=== PATIENT | female | born 1980 ===

== ENCOUNTER 2023-09-27 10:48 | Emergency (ER) | payer OTHER ==
[~2023-09-27] VITALS: Ht 162.6 cm; Wt 105.0 kg
[2023-09-27 11:00] VITALS: BP 138/72; PULSE 84; RESP 16; TEMP 98.3
[2023-09-27 11:35] LABS: COVID AG,FIA SOURCE NASAL SWAB
[2023-09-27 11:55] LABS: SARS-COV2 (COVID) ANTIGEN,FIA Negative (Negative)
[2023-09-27 11:56] LABS: INFLUENZA TYPE A NEGATIVE FOR TYPE A (NEGATIVE); INFLUENZA TYPE B NEGATIVE FOR TYPE B (NEGATIVE)
== END 2023-09-27 14:49 | disposition left against medical advice (07) ==
LOC: EMS 10:54
DX: H92.01 Otalgia, right ear (principal); Z53.21 Procedure and treatment not carried out due to patient leaving prior to being seen by health care provider
CPT/HCPCS: 87804; 99281; Z7502

== ENCOUNTER 2024-12-13 05:14 | Emergency (ER) | payer OTHER ==
[~2024-12-13] VITALS: Ht 165.1 cm; Wt 113.6 kg
[2024-12-13] MEDS: NALOXONE HCL 1 MG/ML 2 ML SYRINGE IVP ONE ×2 (05:37→05:45)
[2024-12-13] MEDS ORDERED: SODIUM CHLORIDE 0.9% 100 ML ONE (05:51)
[2024-12-13] MEDS ORDERED: IOHEXOL 350 MG/ML 100 ML VIAL ONE (05:51)
[2024-12-13 05:55] VITALS: PULSE 101; RESP 20; O2SAT 100; O2SAT 99
[2024-12-13] MEDS: ROCURONIUM BROMIDE 10 MG/ML 5 ML VIAL IVP ONE (06:02)
[2024-12-13 06:04] LABS: ANION GAP 8 mmol/L (8-16); CALCIUM, TOTAL 8.5 mg/dL (8.8-10.5); CARBON DIOXIDE 26 mmol/L (22-29); CHLORIDE 102 mmol/L (98-107); CREATININE 0.58 mg/dL (0.60-1.30); GLOMERULAR FILTR. RATE CALC > 60 mL/min (>60); GLUCOSE,RANDOM 167 mg/dL (70-110); POTASSIUM 3.6 mmol/L (3.5-5.1); SODIUM SERUM 136 mmol/L (136-145); UREA NITROGEN, BLOOD 13 mg/dL (7-18)
[2024-12-13 06:10] VITALS: PULSE 80; RESP 22; O2SAT 100
[2024-12-13] MEDS: SODIUM CHLORIDE 0.9% 1,000 ML IV ONE (06:10)
[2024-12-13 06:14] LABS: MEAN CORPUSCULAR HGB CONC 28.8 G/dL (31.0-37.0); MEAN CORPUSCULAR VOLUME 59 fL (80-100); PLATELET COUNT (AUTO) 525 K/uL (150-450); RED BLOOD CELL COUNT(AUTO) 3.51 MIL/uL (4.00-5.20); RED CELL DISTRIBUTION WIDTH 20.2 % (11.5-14.5); WHITE BLOOD COUNT (AUTO) 10.2 K/uL (4.5-11.0)
[2024-12-13] MEDS: LevETIRAcetam 1,000 MG in DEXTROSE 5%-WATER 100 ML IV ONE (06:14)
[2024-12-13 06:16] LABS: CHOL/HDL RATIO 2.3 (3.9-5.7); CHOLESTEROL 131 mg/dL (131-200); HDL CHOLESTEROL 58 mg/dL (40-60); LDL CHOL (CALC.) 64 mg/dL (0-130); LIPASE 32 U/L (16-77); TRIGLYCERIDES 43 mg/dL (15-150); TROPONIN I-HIGH SENSITIVITY 5 ng/L (<51)
[2024-12-13 06:17] LABS: PROTHROMBIN TIME 10.6 SEC (9.4-11.6)
[2024-12-13] MEDS: PROPOFOL 1000 MG/ISO-OSM 100 ML IV PRN (06:18)
[2024-12-13 06:20] LABS: HEMATOCRIT 20.8 % (36-46)
[2024-12-13] MEDS: FentaNYL CIT 1000MCG/0.9% NACL 100 ML IV PRN (06:21)
[2024-12-13 06:28] LABS: LACTIC ACID 2.3 mmol/L (0.4-2.0)
[2024-12-13 06:35] LABS: PH,URINE DRUG SCREEN 5.5 (5.0-8.0)
[2024-12-13 06:42] LABS: ALBUMIN 3.1 g/dL (3.4-5.0); BILIRUBIN,DIRECT 0.1 mg/dL (0.00-0.20); BILIRUBIN,TOTAL 0.4 mg/dL (0.1-1.0); TOTAL PROTEIN, SERUM 7.6 g/dL (6.4-8.2)
[2024-12-13 06:59] LABS: APPEARANCE,URINE CLEAR (CLEAR); BILIRUBIN,URINE NEGATIVE (NEGATIVE); COLOR,URINE LIGHT YELLOW (YELLOW); GLUCOSE, URINE (UA) TRACE mg/dL (NEGATIVE); KETONES,URINE NEGATIVE (NEGATIVE); LEUKOCYTE ESTERASE ,URINE TRACE (NEGATIVE); NITRATE,URINE NEGATIVE (NEGATIVE); OCCULT BLOOD,URINE NEGATIVE (NEGATIVE); PH,URINE 5.5 (5.0-8.0); PROTEIN,URINE TRACE mg/dL (NEGATIVE); SPECIFIC GRAVITIY, URINE 1.022 (1.003-1.030); UROBILINOGEN,URINE <=1.0 mg/dL (<=1.0)
[2024-12-13] MEDS ORDERED: SODIUM BICARBONATE [ADULT] 8.4% 50 MEQ/50 ML SYRINGE IVP ONE (06:59)
[2024-12-13 07:00] LABS: BAND NEUTROPHILS % (MANUAL) 1 % (0-5); LYMPHOCYTES % (MANUAL) 26 % (22-44); MONOCYTES % (MANUAL) 6 % (2-9); SEGMENTED NEUTROPHILS % 67 % (40-70); TOTAL CELLS COUNTED 100
[2024-12-13 07:01] LABS: RBC MORPHOLOGY COMMENT ABNORMAL R
[2024-12-13 07:02] LABS: BACTERIA,URINE Few /HPF (None Seen); SQUAMOUS EPITHELIAL CELL,UR Few /LPF (None Seen)
[2024-12-13 07:04] LABS: ALCOHOL, URINE DRUG SCREEN NEGATIVE (NEGATIVE); AMPHET/METH SCREEN,URINE POSITIVE (NEGATIVE); BARBITURATE SCREEN, URINE NEGATIVE (NEGATIVE); BENZODIAZEPINES SCREEN,URINE NEGATIVE (NEGATIVE); CANNABINOID SCREEN,URINE NEGATIVE (NEGATIVE); COCAINE SCREEN,URINE NEGATIVE (NEGATIVE); METHADONE SCREEN, URINE NEGATIVE (NEGATIVE); OPIATE SCREEN,URINE NEGATIVE (NEGATIVE); PHENCYCLIDINE SCREEN,URINE NEGATIVE (NEGATIVE)
[2024-12-13] MEDS: SODIUM BICARBONATE [ADULT] 8.4% 50 MEQ/50 ML SYRINGE IVP ONE (07:04)
[2024-12-13 07:17] LABS: ALCOHOL, BLOOD (SERUM) < 3 mg/dL (0-10)
[2024-12-13] MEDS: SODIUM CHLORIDE 3% 500 ML IV ONE (07:26)
[2024-12-13 07:55] LABS: ABG BASE EXCESS -1.4 mmol/L (-2.0-3.0); ABG CARBOXYHEMOGLOBIN 1.5 % (0.5-1.5); ABG HCO3 23.4 mmol/L (21.0-28.0); ABG OXYGEN CONTENT 10.5 mL/dL (15.0-23.0); ABG OXYGEN SATURATION 99.7 % (94.0-98.0); ABG OXYHEMOGLOBIN 98.2 % (94.0-98.0); ABG PCO2 38 mmHg (32.0-45.0); ABG PH 7.407 (7.350-7.450); ABG TOTAL HEMOGLOBIN 6.7 G/dL (12.0-16.0); ALLEN TEST, BLOOD GAS Positive; PO2, ARTERIAL BG 413.3 mmHg (83.0-108.0); SITE, BLOOD GAS LFT RADIAL; SOURCE, BLOOD GAS ARTERIAL; TEMPERATURE, FAHRENHEIT, BG 97.9 FAHREN (96.0-98.6)
[2024-12-13 07:56] LABS: ABG A-A DIFF O2 262.9 mmHg (10-20.0); O2 DEVICE,BLOOD GAS VENTILATOR (ROOM AIR); PEEP,BG 5 cm H2O; VT, ABG 400 ml
[2024-12-13 08:15] VITALS: BP 132/41; PULSE 70; RESP 22; TEMP 98.4; O2SAT 100
== END 2024-12-13 08:40 | disposition short-term general hospital (02) ==
LOC: EMS 05:20
DX: I61.9 Nontraumatic intracerebral hemorrhage, unspecified (principal); R41.82 Altered mental status, unspecified; F15.10 Other stimulant abuse, uncomplicated; D64.9 Anemia, unspecified; Z88.1 Allergy status to other antibiotic agents; Z59.00 Homelessness unspecified; Z90.49 Acquired absence of other specified parts of digestive tract
CPT/HCPCS: 99291; 70496; 31500; 96365; 96375; 71045; 96361; 80061; 80048; 80076; 81001; 82140; 83605; 83690; 84484; 84703; 85025; 85610; 85730; 87086; 36415; 82805; 70498; 99292; 82948; 96368; 80307; 70450; 93005; 36600; J0712; G0480; Q9967; J3010; J3490; J7060; J7050; J7030; 87186; 94002